=== PATIENT | male | born 1980 | race Caucasian/White ===

== ENCOUNTER 2021-08-16 12:23 | Emergency (ER) | payer MEDICAID ==
[~2021-08-16] VITALS: Ht 165.1 cm; Wt 95.5 kg
[2021-08-16 12:43] VITALS: BP 139/80
[2021-08-16] MEDS ORDERED: FLUORESCEIN OPTH STRIP 1 MG OP ONE (13:05)
[2021-08-16] MEDS ORDERED: TETRACAINE HCL/PF 0.5% OPTH 4 ML BTL OP ONE (13:05)
--- NOTE | 2021-08-16 13:15 | NUR ---
Patient ambulated to bed 12 with steady/even gait.
--- NOTE | 2021-08-16 13:21 | NUR ---
CONY orozco is evaluating patient at bedside
--- NOTE | 2021-08-16 13:25 | NUR ---
41 Y/O MALE C/O L EYE IRRITATION X2 WEEKS AGO. C/O REDNESS, PRURITIS, TEARING, AND 5/10, ITCHING/INTERMITTENT, NON-RADIATING PAIN. DENIES CHANGE OF VISION, USE OF CTL OR GLASSES. PT USED PATADAY AND TOOK CLARITIN WITHOUT RELIEF. SEE EYE ASSESSMENT FOR COMPLETE. BED LOCKED IN LOWEST POSITION, SIDE RAILS X 1. VA OD 20/40 OS 20/70 OU 20/25 PMH: DENIES NKDA
[2021-08-16] MEDS ORDERED: OLOP5DRO7 OP (13:36)
--- NOTE | 2021-08-16 13:41 | NUR ---
Patient discharged with v/s stable. Written and verbal after care instructions given and explained. Patient alert, oriented and verbalized understanding of instructions. Ambulatory with steady gait. All questions addressed prior to discharge. ID band removed. Patient advised to follow up with PMD. Rx of Olopatadine Hcl given. Patient educated on indication of medication including possible reaction and side effects. Opportunity to ask questions provided and answered.
== END 2021-08-16 13:41 | disposition home or self-care (01) ==
LOC: MED 12:23
DX: L29.9 Pruritus, unspecified (principal); H57.13 Ocular pain, bilateral; Z79.899 Other long term (current) drug therapy
CPT/HCPCS: 99283